=== PATIENT | male | born 1990 | race African-American/Black ===

== ENCOUNTER 2018-02-16 12:38 | Emergency (ER) | payer MEDICAID ==
[~2018-02-16] VITALS: Ht 165.1 cm; Wt 65.0 kg
[2018-02-16 15:23] VITALS: BP 131/93
== END 2018-02-16 15:31 | disposition home or self-care (01) ==
LOC: ER 12:38
DX: T74.21XA Adult sexual abuse, confirmed, initial encounter (principal); K62.89 Other specified diseases of anus and rectum; R10.30 Lower abdominal pain, unspecified; R42 Dizziness and giddiness; F17.200 Nicotine dependence, unspecified, uncomplicated; Y92.89 Other specified places as the place of occurrence of the external cause
CPT/HCPCS: 99283

== ENCOUNTER 2018-02-18 15:57 | Emergency (ER) | payer MEDICAID ==
[~2018-02-18] VITALS: Ht 177.8 cm; Wt 59.0 kg
[2018-02-18] MEDS ORDERED: ACETAMINOPHEN 325MG TABLET PO ONE (16:45)
[2018-02-18] MEDS ORDERED: ONDANSETRON 4MG ODT PO ONE (16:45)
[2018-02-18 19:05] VITALS: BP 144/96
== END 2018-02-18 19:06 | disposition home or self-care (01) ==
LOC: ER 15:57
DX: S09.8XXA Other specified injuries of head, initial encounter (principal); S00.83XA Contusion of other part of head, initial encounter; R10.9 Unspecified abdominal pain; F17.200 Nicotine dependence, unspecified, uncomplicated; Y00.XXXA Assault by blunt object, initial encounter; Y93.89 Activity, other specified; Y92.89 Other specified places as the place of occurrence of the external cause
CPT/HCPCS: 70450; 70486; 74018; 99284; Q0162

== ENCOUNTER 2020-06-21 09:38 | Emergency (ER) | payer MEDICARE, MEDICAID ==
[~2020-06-21] VITALS: Ht 165.1 cm; Wt 78.6 kg
[2020-06-21 09:40] VITALS: BP 141/82
[2020-06-21] MEDS ORDERED: LIDOCAINE HCL/PF 1% 10 MG/ML 5ML VIAL IJ ONE (10:15)
[2020-06-21] MEDS ORDERED: BACITRACIN ZINC OINT UDPKT TOP ONE (10:15)
[2020-06-21] MEDS ORDERED: TETANUS, DIPHTHERIA, PERTUSSIS VAC/PF 0.5ML (>7YR OLD) IM ONE (10:15)
[2020-06-21] MEDS ORDERED: IBUPROFEN 600MG TABLET PO ONE (10:45)
== END 2020-06-21 10:55 | disposition home or self-care (01) ==
LOC: ER 09:38
DX: S01.81XA Laceration without foreign body of other part of head, initial encounter (principal); Y04.2XXA Assault by strike against or bumped into by another person, initial encounter; Y93.89 Activity, other specified; Y92.89 Other specified places as the place of occurrence of the external cause; Z23 Encounter for immunization
CPT/HCPCS: 12011; 90471; 90715; 99283; J3490

== ENCOUNTER 2020-06-29 09:15 | Emergency (ER) | payer MEDICARE, MEDICAID ==
[~2020-06-29] VITALS: Ht 157.5 cm; Wt 73.0 kg
[2020-06-29 09:20] VITALS: BP 147/87
== END 2020-06-29 11:53 | disposition home or self-care (01) ==
LOC: ER 09:15
DX: S01.411D Laceration without foreign body of right cheek and temporomandibular area, subsequent encounter (principal); Z88.5 Allergy status to narcotic agent; Z86.59 Personal history of other mental and behavioral disorders; Z48.02 Encounter for removal of sutures; X58.XXXD Exposure to other specified factors, subsequent encounter
CPT/HCPCS: 99281

== ENCOUNTER 2020-07-05 09:58 | Emergency (ER) | payer MEDICARE, MEDICAID ==
[~2020-07-05] VITALS: Ht 160 cm; Wt 73.0 kg
[2020-07-05 10:12] VITALS: BP 153/97
== END 2020-07-05 11:15 | disposition home or self-care (01) ==
LOC: ER 09:58
DX: Z48.02 Encounter for removal of sutures (principal)
CPT/HCPCS: 99281

== ENCOUNTER 2020-08-06 15:41 | Emergency (ER) | payer MEDICARE, OTHER, MEDICAID ==
[~2020-08-06] VITALS: Ht 160 cm; Wt 64.0 kg
[2020-08-06 15:47] VITALS: BP 123/82
== END 2020-08-06 17:04 | disposition home or self-care (01) ==
LOC: ER 15:56
DX: L60.8 Other nail disorders (principal); F20.9 Schizophrenia, unspecified; F12.10 Cannabis abuse, uncomplicated; Z87.891 Personal history of nicotine dependence; Z88.5 Allergy status to narcotic agent
CPT/HCPCS: 99283

== ENCOUNTER 2020-09-03 16:17 | Emergency (ER) | payer OTHER, MEDICAID ==
[~2020-09-03] VITALS: Ht 162.6 cm; Wt 61.0 kg
[2020-09-03] MEDS ORDERED: AMOXICILLIN/POTASSIUM CLAVULANATE 875/125MG TAB PO ONE (16:45)
[2020-09-03] MEDS ORDERED: ZIPRASIDONE MESYLATE 20MG/VIAL IM ONE (16:45)
[2020-09-03 18:01] VITALS: BP 112/78
== END 2020-09-03 18:03 | disposition home or self-care (01) ==
LOC: ER 16:17
DX: F20.0 Paranoid schizophrenia (principal); B35.6 Tinea cruris
CPT/HCPCS: 99283; J3486

== ENCOUNTER 2020-11-08 20:22 | Emergency (ER) | payer OTHER, MEDICAID ==
[~2020-11-08] VITALS: Ht 160 cm; Wt 64.0 kg
[2020-11-08 22:30] VITALS: BP 143/88
[2020-11-08] MEDS ORDERED: DEXT15DR5 EACHEYE (23:20)
== END 2020-11-08 23:49 | disposition home or self-care (01) ==
LOC: ER 20:22
DX: H10.11 Acute atopic conjunctivitis, right eye (principal); R03.0 Elevated blood-pressure reading, without diagnosis of hypertension; F12.90 Cannabis use, unspecified, uncomplicated; Z88.8 Allergy status to other drugs, medicaments and biological substances
CPT/HCPCS: 99281

== ENCOUNTER 2020-11-19 03:48 | Emergency (ER) | payer OTHER, MEDICAID ==
[~2020-11-19] VITALS: Ht 160 cm; Wt 73.0 kg
[~2020-11-19 03:48] MED LIST: DEXT15DR5 EACHEYE
[2020-11-19 04:01] VITALS: BP 125/89
== END 2020-11-19 06:20 | disposition home or self-care (01) ==
LOC: ER 03:48
DX: F25.0 Schizoaffective disorder, bipolar type (principal); R03.0 Elevated blood-pressure reading, without diagnosis of hypertension; F12.90 Cannabis use, unspecified, uncomplicated
CPT/HCPCS: 99281

== ENCOUNTER 2021-01-04 09:29 | Emergency (ER) | payer OTHER, MEDICAID ==
[~2021-01-04] VITALS: Ht 172.7 cm; Wt 75.0 kg
[2021-01-04] MEDS ORDERED: ONDANSETRON 4MG ODT PO ONE (11:30)
[2021-01-04] MEDS ORDERED: TRAMADOL HCL/ACETAMINOPHEN 37.5/325MG TABLET PO ONE (11:30)
[2021-01-04 12:04] VITALS: BP 112/78
[2021-01-04 12:11] LABS: BASOPHILS % 0.8 % (0.0-2.0); EOSINOPHILS % 2.3 % (0.0-5.0); HEMATOCRIT. 44.5 % (42.0-52.0); HEMOGLOBIN. 15.5 g/dL (14.0-18.0); LYMPHOCYTES % 40.6 % (20.0-50.0); MEAN CORPUSCULAR HEMOGLOBIN 30.4 pg (28.0-32.0); MEAN CORPUSCULAR VOLUME 87.2 fL (80.0-94.0); MEAN PLATELET VOLUME 8.6 fl (7.4-10.4); MONOCYTES % 9.6 % (2.0-8.0); NEUTROPHILS % 46.7 % (40.0-76.0); PLATELET 233 x1000/uL (130-400)
[2021-01-04 12:16] LABS: CHLORIDE 109 mEq/L (98-107)
== END 2021-01-04 12:10 | disposition home or self-care (01) ==
LOC: ER 09:29
DX: F20.0 Paranoid schizophrenia (principal); F12.10 Cannabis abuse, uncomplicated; Z88.5 Allergy status to narcotic agent
CPT/HCPCS: 36415; 80053; 85025; 99283